=== PATIENT | female | born 1985 | race Caucasian/White ===

== ENCOUNTER 2017-09-21 15:46 | Emergency (ER) | payer MEDICAID ==
[2017-09-21] MEDS ORDERED: Sodium Chloride 0.9% 10 ML Syringe FLUSH PRN (16:25)
[2017-09-21] MEDS ORDERED: HYDROmorphone 2 MG/ML SDV IM ONE ×2 (16:25→18:21)
[2017-09-21] MEDS ORDERED: Ondansetron 4 MG/2 ML SDV IVPUSH ONE (16:27)
[2017-09-21] MEDS ORDERED: Sodium Chloride 0.9% 1,000 ML IV SCH (16:30)
[2017-09-21] MEDS ORDERED: HYDROmorphone 2 MG/ML SDV IVPUSH ONE ×2 (16:55→18:31)
[2017-09-21] MEDS ORDERED: predniSONE 20 MG Tab PO ONE (18:09)
--- NOTE | 2017-09-21 18:51 | EDM.PDOC ---
ED HPI GENERAL MEDICAL PROBLEM - General Chief Complaint: Abdominal Pain Stated Complaint: CROHNS WITH PAIN Time Seen by Provider: 09/21/17 16:00 Source of Information: Reports: Patient History Limitations: Reports: No Limitations - History of Present Illness INITIAL COMMENTS - FREE TEXT/NARRATIVE: Patient is a 32 year old woman who has been out of her prednisone for 4 days that she takes to keep her Crohn's disease in check and now she is having a mild flare of her Crohn's disease with generalized abdominal pain. She has no fever or chills or other complaints. This happens occassionally and she is visiting from [place] and will be going home in 10-14 days. Onset: Gradual Onset Date: 09/17/17 Onset Time: 12:00 Duration: Day(s): (4) Location: Reports: Abdomen Quality: Reports: Ache, Same as Previous Episode Severity: Moderate Improves with: Reports: Medication Worsens with: Reports: Other (Lack of prednisone.) Context: Reports: Other (History of Crohn's disease.) Associated Symptoms: Reports: No Other Symptoms Rt abdomen Pain Score (Numeric/FACES): 8 - Related Data Allergies Allergy/AdvReac Type Severity Reaction Status Date / Time bupropion [From Wellbutrin] Allergy Confusion Verified 09/21/17 16:02 NSAIDS (Non-Steroidal Allergy Other Verified 09/21/17 16:02 Anti-Inflamma tramadol Allergy Hypotension Verified 09/21/17 16:02 Home Meds: Home Meds Acetaminophen [Tylenol Extra Strength] 1,000 mg PO Q6H PRN 09/21/17 [History] Prednisone [IJD: predniSONE] 40 mg PO WITHBREAKFAST 09/21/17 [History] Past Medical History Cardiovascular History: Reports: Blood Clots/VTE/DVT, Heart Murmur Gastrointestinal History: Reports: Cholelithiasis 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: Psychiatric History: Reports: Anxiety - Past Surgical History GI Surgical History: Reports: Appendectomy, Cholecystectomy Female Surgical History: Reports: Hysterectomy Social & Family History - Family History Family Medical History: Unobtainable - Tobacco Use Smoking Status *Q: Current Every Day Smoker Years of Tobacco use: 1 Packs/Tins Daily: 0.2 - Caffeine Use Caffeine Use: Reports: Soda - Recreational Drug Use Recreational Drug Use: No ED ROS GENERAL - Review of Systems Review Of Systems: See Below Constitutional: Reports: Decreased Appetite HEENT: Reports: No Symptoms Respiratory: Reports: No Symptoms Cardiovascular: Reports: No Symptoms Endocrine: Reports: No Symptoms GI/Abdominal: Reports: Abdominal Pain, Nausea : Reports: No Symptoms Musculoskeletal: Reports: No Symptoms Skin: Reports: No Symptoms Neurological: Reports: No Symptoms Psychiatric: Reports: No Symptoms Hematologic/Lymphatic: Reports: No Symptoms Immunologic: Reports: No Symptoms ED EXAM, GI/ABD - Physical Exam Exam: See Below Exam Limited By: No Limitations General Appearance: Alert, WD/WN, No Apparent Distress Eyes: Bilateral: Normal Appearance, EOMI Ears: Normal External Exam, Normal Canal, Hearing Grossly Normal, Normal TMs Nose: Normal Inspection, Normal Mucosa, No Blood Throat/Mouth: Normal Inspection, Normal Lips, Normal Teeth, Normal Gums, Normal Oropharynx, Normal Voice, No Airway Compromise Head: Atraumatic, Normocephalic Neck: Normal Inspection, Supple, Non-Tender, Full Range of Motion Respiratory/Chest: No Respiratory Distress, Lungs Clear, Normal Breath Sounds, No Accessory Muscle Use, Chest Non-Tender Cardiovascular: Normal Peripheral Pulses, Regular Rate, Rhythm, No Edema, No Gallop, No JVD, No Murmur, No Rub GI/Abdominal Exam: Tender (Diffusely) Back Exam: Normal Inspection, Full Range of Motion, NT Extremities: Normal Inspection, Normal Range of Motion, Non-Tender, Normal Capillary Refill, No Pedal Edema Neurological: Alert, Oriented, CN II-XII Intact, Normal Cognition, Normal Gait, Normal Reflexes, No Motor/Sensory Deficits Psychiatric: Normal Affect, Normal Mood Skin Exam: Warm, Dry, Intact, Normal Color, No Rash Lymphatic: No Adenopathy Course - Vital Signs Text/Narrative:: Uneventful ED course. Her labs were all normal and her Flatplate and Upright Abdominal x-ray showed some air in the small bowel but no ileus or obstruction. She got good pain relief with 2 mg of Dilaudid IV. She will also take home Zofran 4 mg po q day. 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 Last Recorded V/S: Last Vital Signs Temp 37.2 C 09/21/17 15:47 Pulse 91 09/21/17 15:47 Resp 17 09/21/17 15:47 BP 134/89 09/21/17 15:47 Pulse Ox 100 09/21/17 15:47 - Orders/Labs/Meds Orders: Active Orders 24 hr Category Date Time Status Abdomen 2V AP Flat Upright [CR] Stat Exams 09/21/17 16:23 Taken Sodium Chloride 0.9% [Normal Saline] 1,000 ml Med 09/21/17 16:30 Active IV ASDIRECTED Sodium Chloride 0.9% [Saline Flush] Med 09/21/17 16:25 Active 10 ml FLUSH ASDIRECTED PRN Saline Lock Insert [OM.PC] Routine Oth 09/21/17 16:25 Ordered Medication Orders Sodium Chloride (Normal Saline) 1,000 mls @ 999 mls/hr IV ASDIRECTED ZULY Last Admin: 09/21/17 16:52 Dose: 999 mls/hr Sodium Chloride (Saline Flush) 10 ml FLUSH ASDIRECTED PRN PRN Reason: Keep Vein Open Last Admin: 09/21/17 16:51 Dose: 10 ml Labs: Laboratory Tests 09/21/17 09/21/17 09/21/17 Range/Units 16:38 16:38 17:20 WBC 6.3 (4.5-12.0) X10-3/uL RBC 3.92 (3.23-5.20) x10(6)uL Hgb 12.1 (11.5-15.5) g/dL Hct 35.8 (30.0-51.3) % MCV 91.3 (80-96) fL MCH 30.8 (27.7-33.6) pg MCHC 33.7 (32.2-35.4) g/dL RDW 14.3 (11.5-15.5) % Plt Count 218 (125-369) X10(3)uL MPV 9.2 (7.4-10.4) fL Neut % (Auto) 47.0 (46-82) % Lymph % (Auto) 41.5 H (13-37) % [place] % (Auto) 7.4 (4-12) % Eos % (Auto) 3 (1.0-5.0) % Baso % (Auto) 1 (0-2) % Neut # (Auto) 2.9 (1.6-8.3) # Lymph # (Auto) 2.6 (0.6-5.0) # [place] # (Auto) 0.5 (0.0-1.3) # Eos # (Auto) 0.2 (0.0-0.8) # Baso # (Auto) 0.1 (0.0-0.2) # Sodium 140 (135-145) mmol/L Potassium 3.9 (3.5-5.3) mmol/L Chloride 107 (100-110) mmol/L Carbon Dioxide 23 (23-29) mmol/L BUN 12 (5-20) mg/dL Creatinine 0.6 (0.6-1.3) mg/dL Est Cr Clr Drug Dosing 105.48 mL/min Estimated GFR (MDRD) > 60 (>60) BUN/Creatinine Ratio 20.0 (9-20) Glucose 98 (80-116) mg/dL Calcium 8.7 (8.6-10.2) mg/dL Total Bilirubin < 0.1 L (0.1-1.3) mg/dL AST 21 (5-27) IU/L ALT 20 (14-26) IU/L Alkaline Phosphatase 92 (56-112) IU/L Total Protein 7.1 (6.0-8.0) g/dL Albumin 4.1 (3.5-5.2) g/dL Globulin 3.0 g/dL Albumin/Globulin Ratio 1.4 Urine Color Yellow (YELLOW) Urine Appearance Slightly cloudy (CLEAR) Urine pH 6.0 (5.0-6.5) Ur Specific [place] 1.020 (1.010-1.025) Urine Protein Negative (NEGATIVE) mg/dL Urine Glucose (UA) Normal (NEGATIVE) mg/dL Urine Ketones Negative (NEGATIVE) mg/dL Urine Occult Blood Negative (NEGATIVE) Urine Nitrite Negative (NEGATIVE) Urine Bilirubin Small H (NEGATIVE) Urine Urobilinogen 1 H (NEGATIVE) mg/dL Ur Leukocyte Esterase Negative (NEGATIVE) Urine WBC 0-5 (0) Ur Squamous Epith Cells Few H (NS,R,O) Urine Bacteria Moderate H (NS) Meds: Medications Generic Name Dose Route Start Last Admin Trade Name Freq PRN Reason Stop Dose Admin Sodium Chloride 1,000 mls @ 999 mls/hr 09/21/17 16:30 09/21/17 16:52 Normal Saline IV 999 mls/hr ASDIRECTED ZULY Administration Sodium Chloride 10 ml 09/21/17 16:25 09/21/17 16:51 Saline Flush FLUSH 10 ml ASDIRECTED PRN Administration Keep Vein Open Discontinued Medications Generic Name Dose Route Start Last Admin Trade Name Freq PRN Reason Stop Dose Admin Hydromorphone HCl 1 mg 09/21/17 16:25 09/21/17 16:59 Dilaudid IM 09/21/17 16:26 Not Given ONETIME ONE Hydromorphone HCl 1 mg 09/21/17 16:55 09/21/17 16:57 Dilaudid IVPUSH 09/21/17 16:56 1 mg ONETIME ONE Administration Hydromorphone HCl 1 mg 09/21/17 18:21 09/21/17 18:32 Dilaudid IM 09/21/17 18:22 Not Given ONETIME ONE Hydromorphone HCl 1 mg 09/21/17 18:31 09/21/17 18:32 Dilaudid IVPUSH 09/21/17 18:32 1 mg ONETIME ONE Administration Ondansetron HCl 4 mg 09/21/17 16:27 09/21/17 16:53 Zofran IVPUSH 09/21/17 16:28 4 mg ONETIME ONE Administration Prednisone 60 mg 09/21/17 18:09 09/21/17 18:15 Prednisone PO 09/21/17 18:10 60 mg ONETIME ONE Administration Departure - Departure Time of Disposition: 18:57 Disposition: Home, Self-Care 01 Condition: Good Clinical Impression: Crohn's colitis - Discharge Information Referrals: PCP,None [Primary Care Provider] - - My Orders Last 24 Hours: My Active Orders 09/21/17 16:23 Abdomen 2V AP Flat Upright [CR] Stat 09/21/17 16:25 Sodium Chloride 0.9% [Saline Flush] 10 ml FLUSH ASDIRECTED PRN Saline Lock Insert [OM.PC] Routine 09/21/17 16:30 Sodium Chloride 0.9% [Normal Saline] 1,000 ml IV ASDIRECTED - Assessment/Plan Last 24 Hours: My Active Orders 09/21/17 16:23 Abdomen 2V AP Flat Upright [CR] Stat 09/21/17 16:25 Sodium Chloride 0.9% [Saline Flush] 10 ml FLUSH ASDIRECTED PRN Saline Lock Insert [OM.PC] Routine 09/21/17 16:30 Sodium Chloride 0.9% [Normal Saline] 1,000 ml IV ASDIRECTED
[2017-09-21] MEDS ORDERED: Ondansetron 4 MG Tab.DIS PO ONE (18:57)
--- NOTE | 2017-09-23 13:14 | CR ---
INDICATION: Flare of Crohn's disease with abdominal pain. ABDOMEN: Four images of the abdomen in supine and upright projections were obtained 09/21/2017. No comparisons were available. Clips compatible with cholecystectomy are noted. There are clips in the epigastric area compatible with gastric surgery. The pattern of gas and feces is nonspecific, without evidence of free air or obstruction. No organomegaly, mass lesions, or pathologic calcifications were identified. L5 vertebral body is sacralized on the left. IMPRESSION: Nonacute abdomen, post-surgical. MTDD
== END 2017-09-21 19:10 | disposition home or self-care (01) ==
LOC: FB.ED 15:46
DX: K52.9 Noninfective gastroenteritis and colitis, unspecified (principal); K50.90 Crohn's disease, unspecified, without complications; F17.210 Nicotine dependence, cigarettes, uncomplicated; Z79.899 Other long term (current) drug therapy; Z88.6 Allergy status to analgesic agent; Z88.8 Allergy status to other drugs, medicaments and biological substances
CPT/HCPCS: 36415; 74020; 80053; 81001; 85025; 96361; 96374; 96375; 96376; 99284; A9270; J1170; J2405; J7040; J7050

== ENCOUNTER 2017-10-16 10:58 | Emergency (ER) | payer MEDICAID ==
[2017-10-16] MEDS ORDERED: Ondansetron 4 MG/2 ML SDV IVPUSH ONE (11:35)
[2017-10-16] MEDS ORDERED: Ketorolac 30 MG/ML SDV IVPUSH ONE (11:35)
--- NOTE | 2017-10-16 11:43 | EDM.PDOC ---
ED HPI GENERAL MEDICAL PROBLEM - General Chief Complaint: Gastrointestinal Problem Stated Complaint: THROWING UP BLOOD AND STOOL Time Seen by Provider: 10/16/17 11:20 Source of Information: Reports: Patient History Limitations: Reports: No Limitations - History of Present Illness INITIAL COMMENTS - FREE TEXT/NARRATIVE: c/o abd pain, blood diarrhea, fever x 6d h/o Crohns, dx 02/15, from [place], in [facility] hosp x 16d in 02/15 on Imuran x 1m after d/c, f/u colonoscopy March or April with still extensive Crohns per pt pt had 10 tabs of prednisone filled on 03-07-17 as per EHR, next fill yesterday with 20 mg TID, however pt reports that she has been on prednisone continuously since 02/15, low of 20 mg/d, high of 60 mg/d Dr Everett, GI, from 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 pain in RUQ, "where it always is", shaking, cold sores in mouth, slight cough, nonproductive, fever off and on x 6d, T 102 yesterday, V x 2 today, no food today, some fluids, BM x 1 today V x 2 last week that were "bloody" gastric bypass 2011 PCP Floridalma oro at [facility], last saw 1.5m ago EHR indicates multiple fills of benzos and narcotics abdomen Pain Score (Numeric/FACES): 7 - Related Data Allergies Allergy/AdvReac Type Severity Reaction Status Date / Time bupropion [From Wellbutrin] Allergy Confusion Verified 10/16/17 11:15 NSAIDS (Non-Steroidal Allergy Other Verified 10/16/17 11:15 Anti-Inflamma tramadol Allergy Hypotension Verified 10/16/17 11:15 Home Meds: Home Meds Acetaminophen [Tylenol Extra Strength] 1,000 mg PO Q6H PRN 09/21/17 [History] Prednisone [IJD: predniSONE] 20 mg PO TID 09/21/17 [History] Past Medical History Cardiovascular History: Reports: Blood Clots/VTE/DVT, Heart Murmur Gastrointestinal History: Reports: Cholelithiasis 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: Psychiatric History: Reports: Anxiety - Past Surgical History GI Surgical History: Reports: Appendectomy, Bariatric Procedure, Cholecystectomy Female Surgical History: Reports: Hysterectomy Social & Family History - Family History Family Medical History: Unobtainable - Tobacco Use Smoking Status *Q: Current Every Day Smoker Years of Tobacco use: 2 Packs/Tins Daily: 0 - Caffeine Use Caffeine Use: Reports: Soda - Recreational Drug Use Recreational Drug Use: No ED ROS GENERAL - Review of Systems Review Of Systems: See Below Constitutional: Reports: No Symptoms HEENT: Reports: Other (cold sores) Respiratory: Reports: Cough Cardiovascular: Reports: No Symptoms Endocrine: Reports: No Symptoms GI/Abdominal: Reports: Abdominal Pain, Bloody Stool, Diarrhea, Nausea, Vomiting : Reports: No Symptoms Musculoskeletal: Reports: No Symptoms Skin: Reports: No Symptoms Neurological: Reports: No Symptoms Psychiatric: Reports: No Symptoms Hematologic/Lymphatic: Reports: No Symptoms Immunologic: Reports: No Symptoms ED EXAM, GI/ABD - Physical Exam Exam: See Below Exam Limited By: No Limitations General Appearance: Alert, WD/WN, No Apparent Distress Nose: Normal Inspection, Normal Mucosa, No Blood Throat/Mouth: Normal Lips, Normal Teeth, Normal Gums, Normal Oropharynx, Normal Voice, No Airway Compromise, Other (3 white cold sores with 2 on lower lip (up to 6 mm) and 1 on upper lip (up to 4 mm), non elsewhere in mouth) Head: Atraumatic, Normocephalic Neck: Normal Inspection, Supple, Non-Tender, Full Range of Motion Respiratory/Chest: No Respiratory Distress, Lungs Clear, Normal Breath Sounds, No Accessory Muscle Use, Chest Non-Tender Cardiovascular: Normal Peripheral Pulses, Regular Rate, Rhythm, No Edema, No Gallop, No JVD, No Murmur, No Rub GI/Abdominal Exam: Normal Bowel Sounds, Soft, No Distention, No Mass, Other ( good BS x 4, mild tender RUQ, not at [place]akes's point) Back Exam: Normal Inspection, Full Range of Motion, NT Extremities: Normal Inspection, Normal Range of Motion, Non-Tender, No Pedal Edema Neurological: Alert, Oriented, CN II-XII Intact, Normal Cognition, No Motor/ Sensory Deficits Psychiatric: Normal Affect, Normal Mood Skin Exam: Warm, Dry, Intact, Normal Color, No Rash Lymphatic: No Adenopathy Course - Vital Signs Last Recorded V/S: Last Vital Signs Temp 36.1 C 10/16/17 13:20 Pulse 76 10/16/17 13:20 Resp 16 10/16/17 13:20 BP 137/87 10/16/17 13:20 Pulse Ox 100 10/16/17 13:20 - Orders/Labs/Meds Orders: Active Orders 24 hr Category Date Time Status Sodium Chloride 0.9% [Normal Saline] 1,000 ml Med 10/16/17 11:45 Active IV ASDIRECTED Medication Orders Sodium Chloride (Normal Saline) 1,000 mls @ 999 mls/hr IV ASDIRECTED ZULY Last Admin: 10/16/17 11:57 Dose: 999 mls/hr Labs: Laboratory Tests 10/16/17 10/16/17 10/16/17 Range/Units 11:44 11:44 12:38 WBC 7.8 (4.5-12.0) X10-3/uL RBC 3.81 (3.23-5.20) x10(6)uL Hgb 11.7 (11.5-15.5) g/dL Hct 34.5 (30.0-51.3) % MCV 90.4 (80-96) fL MCH 30.6 (27.7-33.6) pg MCHC 33.9 (32.2-35.4) g/dL RDW 13.7 (11.5-15.5) % Plt Count 260 (125-369) X10(3)uL MPV 8.7 (7.4-10.4) fL Neut % (Auto) 60.5 (46-82) % Lymph % (Auto) 29.4 (13-37) % [place] % (Auto) 7.1 (4-12) % Eos % (Auto) 3 (1.0-5.0) % Baso % (Auto) 1 (0-2) % Neut # (Auto) 4.7 (1.6-8.3) # Lymph # (Auto) 2.3 (0.6-5.0) # [place] # (Auto) 0.6 (0.0-1.3) # Eos # (Auto) 0.2 (0.0-0.8) # Baso # (Auto) 0.0 (0.0-0.2) # Sodium 134 L (135-145) mmol/L Potassium 3.5 (3.5-5.3) mmol/L Chloride 97 L D (100-110) mmol/L Carbon Dioxide 28 (23-29) mmol/L BUN 15 (5-20) mg/dL Creatinine 0.8 (0.6-1.3) mg/dL Est Cr Clr Drug Dosing TNP Estimated GFR (MDRD) > 60 (>60) BUN/Creatinine Ratio 18.8 (9-20) Glucose 91 (80-116) mg/dL Calcium 8.9 (8.6-10.2) mg/dL Total Bilirubin 0.5 (0.1-1.3) mg/dL AST 19 (5-27) IU/L ALT 29 H D (14-26) IU/L Alkaline Phosphatase 153 H (56-112) IU/L C-Reactive Protein 2.6 H* (0.0-1.0) mg/dL Total Protein 7.6 (6.0-8.0) g/dL Albumin 4.0 (3.5-5.2) g/dL Globulin 3.6 g/dL Albumin/Globulin Ratio 1.1 Urine Color Yellow (YELLOW) Urine Appearance Clear (CLEAR) Urine pH 7.0 H (5.0-6.5) Ur Specific [place] 1.010 (1.010-1.025) Urine Protein Negative (NEGATIVE) mg/dL Urine Glucose (UA) Normal (NEGATIVE) mg/dL Urine Ketones Negative (NEGATIVE) mg/dL Urine Occult Blood Negative (NEGATIVE) Urine Nitrite Negative (NEGATIVE) Urine Bilirubin Negative (NEGATIVE) Urine Urobilinogen Normal (NEGATIVE) mg/dL Ur Leukocyte Esterase Negative (NEGATIVE) Urine RBC 0-5 (0) Urine WBC 10-20 H (0) Ur Squamous Epith Cells Moderate H (NS,R,O) Urine Bacteria Moderate H (NS) Hyaline Casts Moderate H (NS) Meds: Medications Generic Name Dose Route Start Last Admin Trade Name Freq PRN Reason Stop Dose Admin Sodium Chloride 1,000 mls @ 999 mls/hr 10/16/17 11:45 10/16/17 11:57 Normal Saline IV 999 mls/hr ASDIRECTED ZULY Administration Discontinued Medications Generic Name Dose Route Start Last Admin Trade Name Freq PRN Reason Stop Dose Admin Ketorolac Tromethamine 30 mg 10/16/17 11:35 10/16/17 11:57 Toradol IVPUSH 10/16/17 11:36 30 mg ONETIME ONE Administration Ondansetron HCl 4 mg 10/16/17 11:35 10/16/17 11:57 Zofran IVPUSH 10/16/17 11:36 4 mg ONETIME ONE Administration - Re-Assessments/Exams Free Text/Narrative Re-Assessment/Exam: 10/16/17 13:22 labs unremarkable except inc'd CRP, urine without ketones, no fever here pt hx unreliable, should respond to prednisone 60 mg/d which she has not been taking according to EHR has Zofran ODT at home, not been using Departure - Departure Time of Disposition: 13:24 Disposition: Home, Self-Care 01 Condition: Good Clinical Impression: Crohns disease - Discharge Information Referrals: PCP,None [Primary Care Provider] - Forms: ED Department Discharge Additional Instructions: Continue prednisone 20 mg 1 tab 3 times a day. Continue acetaminophen 325 mg 2 tabs 4 times a day. Increase fluids. For nausea, use Zofran ODT 4 mg under the tongue every 6 hours as needed. Contact Dr Everett in the next 1-2 days for further recommendations. Your CRP is 2.6. Your other tests are negative. - My Orders Last 24 Hours: My Active Orders 10/16/17 11:45 Sodium Chloride 0.9% [Normal Saline] 1,000 ml IV ASDIRECTED - Assessment/Plan Last 24 Hours: My Active Orders 10/16/17 11:45 Sodium Chloride 0.9% [Normal Saline] 1,000 ml IV ASDIRECTED
[2017-10-16] MEDS ORDERED: Sodium Chloride 0.9% 1,000 ML IV SCH (11:45)
== END 2017-10-16 13:32 | disposition home or self-care (01) ==
LOC: FB.ED 10:58
DX: K50.90 Crohn's disease, unspecified, without complications (principal); F17.200 Nicotine dependence, unspecified, uncomplicated; Z88.5 Allergy status to narcotic agent; Z88.8 Allergy status to other drugs, medicaments and biological substances; Z98.84 Bariatric surgery status; Z90.49 Acquired absence of other specified parts of digestive tract
CPT/HCPCS: 36415; 80053; 81001; 85025; 86140; 87804; 96361; 96374; 96375; 99284; J1885; J2405; J7040